=== PATIENT | male | born 1975 | race Two or more races ===

== ENCOUNTER → 2023-02-06 | Outpatient (CLI) | payer OTHER ==
--- NOTE | 2023-02-06 15:56 | MR ---
EXAMINATION TYPE: MR abdomen wo/w con DATE OF EXAM: 02/06/2023 10:08 AM CLINICAL INDICATION:Male, 47 years old with history of R22.9 LOCALIZED SWELLING, MASS LUMP; PHH, Lump at rt lateral side mid abdomen, Area of interest marked COMPARISON: None TECHNIQUE: Multiplanar multi-sequence imaging was performed without contrast. Post contrast imaging was performed. Marker placed at the area of palpable abnormality. IV Contrast: 9 cc Gadavist FINDINGS: LOWER CHEST: No gross irregularity. ABDOMEN Liver: No evidence for hepatic steatosis or cirrhosis. Few scattered high T2 simple appearing cyst. Gallbladder and Bile ducts: No evidence for ductal dilation, or biliary stricture or evidence of chol edocholithiasis. The gallbladder is within normal limits. Pancreas: No ductal dilation. No evidence for solid mass. Spleen: Normal for size. Adrenal glands: Left adrenal lipid rich adrenal adenomas with signal dropout on chemical shift of pha se imaging. Kidneys: No evidence for obstructive uropathy. No suspicious renal masses. Right renal high T2 signal simple appearing cyst. Stomach and Bowel: No evidence for bowel wall thickening or evidence for obstruction.. Peritoneum: No evidence of pneumoperitoneum or free fluid. Vasculature: No aortic aneurysm. Musculoskeletal: The osseous structures appear intact. Lymph Nodes: No gross evidence for lymphadenopathy. Abdominal wall: Fat-containing umbilical hernia. Subcutaneous lipoma measuring 5.9 x 2.5 x 4.5 cm. No abnormal postcontrast enhancement. IMPRESSION: 1. Right lateral subcutaneous lipoma measuring 5.9 x 2.5 x 4.5 cm. Correlates with palpable abnormal ity marked by patient. 2. No acute intra-abdominal process.
== END | disposition home or self-care (01) ==
LOC: RADMRIMAIN 08:51
PROVIDERS: ATTEND Nurse Practitioner Family
DX: R22.9 Localized swelling, mass and lump, unspecified (principal)
CPT/HCPCS: 74183; A9585